=== PATIENT | male | born 1960 | race Caucasian/White ===

== ENCOUNTER 2021-11-08 23:43 | Inpatient (IN) | payer SELFPAY ==
[~2021-11-08] VITALS: Ht 182.9 cm; Wt 108.8 kg
--- NOTE | 2021-11-09 00:20 | PHYS DOC ---
Past Medical History Additional Past Medical Histor: HERNIA Past Surgical History: Other Adult General Chief Complaint Chief Complaint: ALTERED MENTAL STATUS HPI HPI Patient is a 61 year old male presenting to the emergency department for evaluation of a seizure episode that occurred at a gas station shortly prior to arrival. Per EMS the seizure was not witnessed rather he was filling up with gas at a gas station and someone found him laying on the ground at the gas pump. Patient had lost continence and bit his tongue to EMS as a suspect that he had a seizure. Patient says that he has had 1 prior seizure in his life and he is not on medications for seizures. He says he has no medical problems and takes no medications on a regular basis. He is somewhat confused but appears to be improving and able to answer questions. He has multiple abrasions on his hands and he says that his tetanus is up-to-date. Patient is in no acute distress with normal vital signs. Patient does admit that he drinks alcohol approximately 1 pint of whiskey daily and his last drink was possibly yesterday but he is unsure on this. At home he smokes cigarettes but does not use any drugs. Review of Systems Review of Systems Constitutional: Denies fever or chills [] Eyes: Denies change in visual acuity, redness, or eye pain [] HENT: Denies nasal congestion or sore throat [] Respiratory: Denies cough or shortness of breath [] Cardiovascular: No additional information not addressed in HPI [] GI: Denies abdominal pain, nausea, vomiting, bloody stools or diarrhea [] : Denies dysuria or hematuria [] Musculoskeletal: Denies back pain or joint pain [] Integument: Positive abrasion Neurologic: Denies headache, focal weakness or sensory changes [] All other systems were reviewed and found to be within normal limits, except as documented in this note. Current Medications Current Medications Current Medications Medications (Trade) Dose Ordered Sig/Cuauhtemoc Start Time Stop Time Status Last Admin Dose Admin Ibuprofen (Motrin) 800 mg 1X ONCE 11/09/21 01:00 11/09/21 01:01 DC Sodium Chloride 1,000 ml @ 1,000 mls/hr 1X ONCE 11/09/21 00:30 11/09/21 01:29 DC 11/09/21 00:43 1,000 MLS/HR Allergies Allergies Allergies Coded Allergies Type Severity Reaction Last Updated Verified No Known Drug Allergies 11/08/21 No Physical Exam Physical Exam Constitutional: Well developed, well nourished, no acute distress, non-toxic appearance. [] HENT: Normocephalic, atraumatic, bilateral external ears normal, oropharynx moist, no oral exudates, nose normal. [] Eyes: PERRLA, EOMI, conjunctiva normal, no discharge. [] Neck: Normal range of motion, no tenderness, supple, no stridor. [] Cardiovascular:Heart rate regular rhythm, no murmur [] Lungs & Thorax: Bilateral breath sounds clear to auscultation [] Abdomen: Bowel sounds normal, soft, no tenderness, no masses, no pulsatile masses. [] Skin: Multiple abrasions on bilateral hands Back: No midline cervical thoracic or lumbar tenderness to palpation Extremities: No tenderness, no cyanosis, no clubbing, ROM intact, no edema. [] Neurologic: Alert and oriented X 3, normal motor function, normal sensory function, no focal deficits noted. [] Current Patient Data Vital Signs Vital Signs Date Time Temp Pulse Resp B/P (MAP) Pulse Ox O2 Delivery O2 Flow Rate FiO2 11/08/21 23:45 97.8 77 16 143/67 (92) 98 Room Air 97.8 Lab Values Laboratory Tests Test 11/09/21 00:41 White Blood Count 5.0 x10^3/uL (4.0-11.0) Red Blood Count 4.02 x10^6/uL (4.30-5.70) L Hemoglobin 13.7 g/dL (13.0-17.5) Hematocrit 38.3 % (39.0-53.0) L Mean Corpuscular Volume 95 fL (79-100) Mean Corpuscular Hemoglobin 34 pg (25-35) Mean Corpuscular Hemoglobin Concent 36 g/dL (31-37) Red Cell Distribution Width 14.5 % (11.5-14.5) Platelet Count 97 x10^3/uL (140-400) L Neutrophils (%) (Auto) 73 % (31-73) Lymphocytes (%) (Auto) 17 % (24-48) L Monocytes (%) (Auto) 9 % (0-9) Eosinophils (%) (Auto) 1 % (0-3) Basophils (%) (Auto) 1 % (0-3) Neutrophils # (Auto) 3.7 x10^3/uL (1.8-7.7) Lymphocytes # (Auto) 0.8 x10^3/uL (1.0-4.8) L Monocytes # (Auto) 0.5 x10^3/uL (0.0-1.1) Eosinophils # (Auto) 0.0 x10^3/uL (0.0-0.7) Basophils # (Auto) 0.0 x10^3/uL (0.0-0.2) Sodium Level 126 mmol/L (136-145) L Potassium Level 2.2 mmol/L (3.5-5.1) *L Chloride Level 84 mmol/L (98-107) L Carbon Dioxide Level 33 mmol/L (21-32) H Anion Gap 9 (6-14) Blood Urea Nitrogen 32 mg/dL (8-26) H Creatinine 1.4 mg/dL (0.7-1.3) H Estimated GFR (Cockcroft-Gault) 51.9 BUN/Creatinine Ratio 23 (6-20) H Glucose Level 151 mg/dL (70-99) H Lactic Acid Level 3.4 mmol/L (0.4-2.0) H Calcium Level 8.6 mg/dL (8.5-10.1) Total Bilirubin 2.3 mg/dL (0.2-1.0) H Aspartate Amino Transferase (AST) 102 U/L (15-37) H Alanine Aminotransferase (ALT) 67 U/L (16-63) H Alkaline Phosphatase 66 U/L (46-116) Creatine Kinase 627 U/L (39-308) H Troponin I High Sensitivity 61 ng/L (4-75) Total Protein 7.1 g/dL (6.4-8.2) Albumin 3.5 g/dL (3.4-5.0) Albumin/Globulin Ratio 1.0 (1.0-1.7) Lipase 201 U/L (73-393) Thyroid Stimulating Hormone (TSH) 14.787 uIU/mL (0.358-3.74) H Ethyl Alcohol Level < 10 mg/dL (0-10) Laboratory Tests 11/09/21 00:41 Laboratory Tests 11/09/21 00:41 EKG EKG Sinus rhythm at 76 bpm with normal axis and no ST elevation but there is ST depression in the lateral leads with inverted T waves in leads aVL and V2 thro ugh V6 Radiology/Procedures Radiology/Procedures [] Course & Med Decision Making Course & Med Decision Making Patient may have had the second seizure in his life and he is not on any medications. I will check labs and imaging and observe closely. Patient continues to be somewhat confused and is very slow to answer questions I told him given these are basically new onset seizures given his prior seizure was in the 90s that we could work him up from a neurologic perspective for his new onset seizures. He may not get extensive work-up given it is the weekend but patient agreed that he still did not feel like he was at his baseline. I will defer seizure medications at this time and observe in the hospital to see if he has any further seizures. The seizures are not consistent with withdrawal in my opinion given he is not tachycardic or hypertensive or have tremors. Of note patient is severely hypokalemic and his correction has been started from the emergency department with potassium and magnesium. Dragon Disclaimer Dragon Disclaimer This electronic medical record was generated, in whole or in part, using a voice recognition dictation system. Departure Departure Impression: Primary Impression: New onset seizure Additional Impressions: Acute encephalopathy Hypokalemia Rhabdomyolysis Lactic acid acidosis Transaminitis Disposition: ADMITTED INPATIENT Admitting Physician: MELVIN Blackwood) Condition: GUARDED Problem Qualifiers PATT BELTRAN DO Nov 09, 2021 00:20
[2021-11-09] MEDS ORDERED: IV NORMAL SALINE 1000ML BAG 1,000 ML IV ONE (00:30)
[2021-11-09 00:54] LABS: BASO % 1 % (0-3); EOS % 1 % (0-3); HEMATOCRIT 38.3 % (39.0-53.0); HEMOGLOBIN 13.7 g/dL (13.0-17.5); LYMPH # 0.8 x10^3/uL (1.0-4.8); LYMPH % 17 % (24-48); MEAN CORPUSCULAR HEMOGLOBIN 34 pg (25-35); MEAN CORPUSCULAR HGB CONC 36 g/dL (31-37); MEAN CORPUSCULAR VOLUME 95 fL (79-100); MONO # 0.5 x10^3/uL (0.0-1.1); MONO % 9 % (0-9); NEUT # 3.7 x10^3/uL (1.8-7.7); NEUT % 73 % (31-73); PLATELET COUNT 97 x10^3/uL (140-400); RED BLOOD COUNT 4.02 x10^6/uL (4.30-5.70); RED CELL DISTRIBUTION WIDTH 14.5 % (11.5-14.5)
[2021-11-09] MEDS ORDERED: IBUPROFEN 400 MG TABLET. PO ONE (01:00)
[2021-11-09 01:12] LABS: ALBUMIN 3.5 g/dL (3.4-5.0); CALCIUM 8.6 mg/dL (8.5-10.1); CREATININE 1.4 mg/dL (0.7-1.3); GFR 51.9; TOTAL BILIRUBIN 2.3 mg/dL (0.2-1.0); TOTAL PROTEIN 7.1 g/dL (6.4-8.2)
[2021-11-09 01:14] LABS: POTASSIUM 2.2 mmol/L (3.5-5.1)
--- NOTE | 2021-11-09 01:29 | RAD ---
STUDY: CT head and cervical spine without contrast INDICATION: Seizure. Altered mental status. COMPARISON: None. TECHNIQUE: Axial CT imaging through the head and cervical spine without the use of intravenous contra st. Sagittal and coronal reformats were obtained. One or more of the following individualized dose reduction techniques were utilized for this examinat ion: 1. Automated exposure control 2. Adjustment of the mA and/or kV according to patient size 3. Use of iterative reconstruction technique. FINDINGS: CT head: Craniectomy defect on the left. Thin increased attenuation within the extra-axial space at the adjace nt to the craniectomy defect but not density of acute hemorrhage. No acute hemorrhage is identified t hroughout the rest of the head. Asymmetric parenchymal volume loss on the left cerebral hemisphere an d patchy hypoattenuation within the subcortical white matter. Primarily left temporal lobe encephalom alacia. No large area of jensen-white matter differentiation loss is suspicious for an acute cortical i nfarct. No regional mass effect. No hydrocephalus. No acute calvarial abnormality. CT cervical spine: Degraded study on account of patient body habitus with beam attenuation. No acute fractures identified. No traumatic malalignment. Multilevel degenerative changes most advanced at C5-C6 and C6-C7. The most notable osseous neural for aminal stenosis is on the right at C5-C6. Multilevel central canal stenosis greatest at C5-C6 and C6- C7 which is at least moderate to potentially severe at these levels. Scattered calcific atherosclerosis. Emphysematous changes at the lung apices. IMPRESSION: CT head: 1. No acute intracranial hemorrhage or CT evidence for an acute cortical infarction. 2. Craniectomy defect on the left. Parenchymal and extra-axial findings in the region of the craniec sherry favored subacute to chronic in age. No comparison studies are available. No hydrocephalus or reg ional mass effect. CT cervical spine: 1. No acute fracture or traumatic malalignment. 2. Advanced degenerative changes at C5-C6 and C6-C7 with at least moderate to potentially severe claudia tral canal stenosis at these levels. The most notable osseous neural foraminal stenosis is on the rig ht at C5-C6. Electronically signed by: NOE JORDAN MD (11/09/2021 1:26 AM) [facility]
[2021-11-09] MEDS ORDERED: MORPHINE SULFATE 2 MG/ML INJ. IVP PRN (01:45)
[2021-11-09] MEDS ORDERED: ONDANSETRON PF 4 MG/2 ML VIAL. IVP PRN ×2 (01:45→11:45)
[2021-11-09] MEDS ORDERED: MAGNESIUM SULFATE 4GM 100 ML IV ONE (02:00)
[2021-11-09] MEDS ORDERED: POTASSIUM CHLORIDE 20 MEQ TABLET.ER. PO ONE (02:00)
[2021-11-09] MEDS ORDERED: POTASSIUM CL 40MEQ IN 0.9%NACL 1,000 ML IV SCH (02:00)
--- NOTE | 2021-11-09 03:33 | EKG ---
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
--- NOTE | 2021-11-09 03:45 | NUR ---
The patient, PRITI DELGADO, 61 y/o, M admitted by NENA DICKERSON III, DO, was given written information regarding hospital policies, unit procedures and contact persons. PT'S SPEECH IS TINY BIT DELAYED TO ANSWER QUESTIONS OR ANSWERS, THEN CHANGES THE ANSWER. HE HAS SKIN SCRAPES ON ELBOWS,HANDS,FINGERS LOWER LEGS HAS SCRAPES AND BRUISES. HAD PT SOAK HIS HAND TO CLEAN THE AREAS Valuables were checked and DOCUMENTED IN THE EMR, HE HAS SEVERAL BRACLETS AND SEVERAL RINGS, ONE HEARING AIDE RIGHT AND THEN HIS CLOTHES. HAVE NOT ASSESSED HIS AMBULATION. HIS URINE IS TEA COLOR. HE IS FORGETFUL.LCRN
[2021-11-09] MEDS ORDERED: HTN MED (03:54)
[2021-11-09] MEDS ORDERED: [UNRECOGNIZED DRUG - OTHER] (03:55)
[2021-11-09 04:00] VITALS: BP 112/59
[2021-11-09 07:00] VITALS: BP 114/56
[2021-11-09 10:30] VITALS: BP 117/55
[2021-11-09 11:22] LABS: CALCIUM 7.9 mg/dL (8.5-10.1); GFR 76.5
[2021-11-09 11:27] LABS: POTASSIUM 2.4 mmol/L (3.5-5.1)
[2021-11-09] MEDS ORDERED: CALCIUM CARBONATE 500 MG TAB.CHEW PO PRN (11:45)
[2021-11-09] MEDS ORDERED: ELECTROLYTE (NON-ICU) PROTOCOL. MC PRN (11:45)
--- NOTE | 2021-11-09 12:09 | PDOC1 ---
History and Physical Date of Service: DOS: DATE: 11/09/21 TIME: 12:01 Chief Complaint: Chief Complain: Seizure-like activity History of Present Illness: HPI: Patient is a 61-year-old male presented to the emergency room overnight after reports of a seizure while he was pumping gas. Per EMS seizure was not witnessed by anybody but he was postictal on the ground. Had bitten his tongue and lost continence. Bystanders contacted emergency department. I saw the patient he was awake alert oriented x3. Not the best historian. Says the last thing he remembers about this event was getting out of his car to pump gas. Said he had 1 prior seizure in the , was not really able to explain in much detail to me potential cause. Denies any daily medications but also admits to not following up with doctors. Drinks 1 pint of whiskey daily and has for many years. Last drink was Wednesday night Patient also noted to be very hypokalemic on arrival. Past Medical/Surgical History: PMH/PSH: Seizure but really could not expand any detail Allergies: Allergies: Coded Allergies: No Known Drug Allergies (Unverified , 11/08/21) Family History: Family History: Denies knowing any Social History: Social History: 1 pint of whiskey daily. Daily tobacco smoker. Denies drug use Current Medications: Current Medications Current Medications Sodium Chloride 1,000 ml @ 1,000 mls/hr 1X ONCE IV Last administered on 11/09/21at 00:43; Start 11/09/21 at 00:30; Stop 11/09/21 at 01:29; Status DC Ibuprofen (Motrin) 800 mg 1X ONCE PO ; Start 11/09/21 at 01:00; Stop 11/09/21 at 01:01; Status DC Potassium Chloride/Sodium Chloride 1,000 ml @ 250 mls/hr Q4H IV Last administered on 11/09/21at 02:03; Start 11/09/21 at 02:00; Stop 11/09/21 at 05: 59; Status DC Potassium Chloride (Klor-Con) 40 meq 1X ONCE PO ; Start 11/09/21 at 02:00; Stop 11/09/21 at 02:01; Status DC Magnesium Sulfate 100 ml @ 25 mls/hr 1X ONCE IV Last administered on 11/09/21at 02:30; Start 11/09/21 at 02:00; Stop 11/09/21 at 05:59; Status DC Ondansetron HCl (Zofran) 4 mg PRN Q8HRS PRN IVP NAUSEA/VOMITING 1ST CHOICE; Start 11/09/21 at 01:45; Stop 11/10/21 at 01:44 Morphine Sulfate (Morphine Sulfate) 2 mg PRN Q2HR PRN IVP SEVERE PAIN 7-10; Start 11/09/21 at 01:45; Stop 11/10/21 at 01:44 Multivitamins 10 ml/Thiamine HCl 100 mg/Folic Acid 1 mg/Sodium Chloride 1,011.2 ml @ 100 mls/ hr DAILY IV ; Start 11/09/21 at 14:00; Stop 11/13/21 at 19:07 Multivitamins (Thera M Plus) 1 tab DAILY PO ; Start 11/14/21 at 09:00; Status UNV Folic Acid (Folic Acid) 1 mg DAILY PO ; Start 11/14/21 at 09:00; Status UNV Thiamine Mononitrate (Vitamin B-1) 100 mg DAILY PO ; Start 11/14/21 at 09:00; Status UNV Lorazepam (Ativan) 4 mg PRN Q1HR PRN PO For CIWA 8-14; Start 11/09/21 at 11:45; Status UNV Lorazepam (Ativan) 8 mg PRN Q1HR PRN PO For CIWA 15 or greater; Start 11/09/21 at 11:45; Status UNV Potassium Chloride (Klor-Con) 40 meq Q4H PO ; Start 11/09/21 at 11:45; Stop 11/09/21 at 15:46; Status UNV Potassium Chloride/Water 100 ml @ 100 mls/hr Q1H IV ; Start 11/09/21 at 11:45; Stop 11/09/21 at 15:44; Status UNV Ondansetron HCl (Zofran) 4 mg PRN Q6HRS PRN IVP NAUSEA/VOMITING; Start 11/09/21 at 11:45; Status UNV Calcium Carbonate/ Glycine (Tums) 500 mg PRN Q3HRS PRN PO UPSET STOMACH; Start 11/09/21 at 11:45; Status UNV Info (Non-Icu Electrolyte Protocol) 1 ea PRN DAILY PRN MC SEE COMMENTS; Start 11/09/21 at 11:45; Status UNV Senna/Docusate Sodium (Senna Plus) 1 tab BID PO ; Start 11/09/21 at 21:00; Status UNV Heparin Sodium (Porcine) (Heparin Sodium) 5,000 unit Q8HRS SQ ; Start 11/09/21 at 14:00; Status UNV Active Scripts Active Reported [Hypertension Med.] ROS: Review of Systems Review of System Unless noted in HPI 14 point review of systems is negative Physical Exam: Vital Signs: Vital Signs Date Time Temp Pulse Resp B/P (MAP) Pulse Ox O2 Delivery O2 Flow Rate FiO2 11/09/21 10:30 98.1 66 18 117/55 (75) 99 Room Air 98.1 11/09/21 07:00 2.0 Physcial Exam: GEN: No apparent distress. Alert and oriented HEENT: Normal cephalic, atraumatic, external auditory canals are patent EYES: Extraocular muscles are intact, pupil are equally round and reactive to light and accommodation MUSCULOSKELETAL: Well developed , well nourished, good range of motion ENDOCRINE: No thyromegaly was palpated LYMPHATICS: No cervical chain or axillary nodes were noted HEMATOPOIETIC: No bruising NECK: Supple, no JVD, no thyromegaly was noted LUNGS: Clear to auscultation in all lung shepard without rhonchi or wheezing HEART: RRR, S1, S2 present. Peripheral pulses intact, no obvious murmurs noted ABDOMEN: Soft, nontender. Positive bowel sounds, no organomegaly, normal bowel sounds EXTREMITIES: Without clubbing, cyanosis, or edema. Pedal pulses intact. Negative Homans sign NEUROLOGIC: Normal speech and tone. A&O x 3, moves all extremities, no obvious focal deficits PSYCHIATRIC: Normal affect, normal mood. Stable SKIN: No ulcerations or rashes, good skin turgor, no jaundice VASCULAR: Good capillary refill, neurovascular bundle appears to be intact Labs: Labs: Laboratory Tests Test 11/09/21 00:41 11/09/21 04:00 11/09/21 11:02 White Blood Count 5.0 x10^3/uL (4.0-11.0) Red Blood Count 4.02 x10^6/uL (4.30-5.70) Hemoglobin 13.7 g/dL (13.0-17.5) Hematocrit 38.3 % (39.0-53.0) Mean Corpuscular Volume 95 fL (79-100) Mean Corpuscular Hemoglobin 34 pg (25-35) Mean Corpuscular Hemoglobin Concent 36 g/dL (31-37) Red Cell Distribution Width 14.5 % (11.5-14.5) Platelet Count 97 x10^3/uL (140-400) Neutrophils (%) (Auto) 73 % (31-73) Lymphocytes (%) (Auto) 17 % (24-48) Monocytes (%) (Auto) 9 % (0-9) Eosinophils (%) (Auto) 1 % (0-3) Basophils (%) (Auto) 1 % (0-3) Neutrophils # (Auto) 3.7 x10^3/uL (1.8-7.7) Lymphocytes # (Auto) 0.8 x10^3/uL (1.0-4.8) Monocytes # (Auto) 0.5 x10^3/uL (0.0-1.1) Eosinophils # (Auto) 0.0 x10^3/uL (0.0-0.7) Basophils # (Auto) 0.0 x10^3/uL (0.0-0.2) Sodium Level 126 mmol/L (136-145) 126 mmol/L (136-145) Potassium Level 2.2 mmol/L (3.5-5.1) 2.4 mmol/L (3.5-5.1) Chloride Level 84 mmol/L (98-107) 89 mmol/L (98-107) Carbon Dioxide Level 33 mmol/L (21-32) 31 mmol/L (21-32) Anion Gap 9 (6-14) 6 (6-14) Blood Urea Nitrogen 32 mg/dL (8-26) 23 mg/dL (8-26) Creatinine 1.4 mg/dL (0.7-1.3) 1.0 mg/dL (0.7-1.3) Estimated GFR (Cockcroft-Gault) 51.9 76.5 BUN/Creatinine Ratio 23 (6-20) Glucose Level 151 mg/dL (70-99) 94 mg/dL (70-99) Lactic Acid Level 3.4 mmol/L (0.4-2.0) 1.2 mmol/L (0.4-2.0) Calcium Level 8.6 mg/dL (8.5-10.1) 7.9 mg/dL (8.5-10.1) Total Bilirubin 2.3 mg/dL (0.2-1.0) Aspartate Amino Transf (AST/SGOT) 102 U/L (15-37) Alanine Aminotransferase (ALT/SGPT) 67 U/L (16-63) Alkaline Phosphatase 66 U/L (46-116) Creatine Kinase 627 U/L (39-308) Troponin I High Sensitivity 61 ng/L (4-75) Total Protein 7.1 g/dL (6.4-8.2) Albumin 3.5 g/dL (3.4-5.0) Albumin/Globulin Ratio 1.0 (1.0-1.7) Lipase 201 U/L (73-393) Thyroid Stimulating Hormone (TSH) 14.787 uIU/mL (0.358-3.74) Ethyl Alcohol Level < 10 mg/dL (0-10) Laboratory Tests Test 11/09/21 00:41 11/09/21 04:00 11/09/21 11:02 White Blood Count 5.0 x10^3/uL (4.0-11.0) Red Blood Count 4.02 x10^6/uL (4.30-5.70) Hemoglobin 13.7 g/dL (13.0-17.5) Hematocrit 38.3 % (39.0-53.0) Mean Corpuscular Volume 95 fL (79-100) Mean Corpuscular Hemoglobin 34 pg (25-35) Mean Corpuscular Hemoglobin Concent 36 g/dL (31-37) Red Cell Distribution Width 14.5 % (11.5-14.5) Platelet Count 97 x10^3/uL (140-400) Neutrophils (%) (Auto) 73 % (31-73) Lymphocytes (%) (Auto) 17 % (24-48) Monocytes (%) (Auto) 9 % (0-9) Eosinophils (%) (Auto) 1 % (0-3) Basophils (%) (Auto) 1 % (0-3) Neutrophils # (Auto) 3.7 x10^3/uL (1.8-7.7) Lymphocytes # (Auto) 0.8 x10^3/uL (1.0-4.8) Monocytes # (Auto) 0.5 x10^3/uL (0.0-1.1) Eosinophils # (Auto) 0.0 x10^3/uL (0.0-0.7) Basophils # (Auto) 0.0 x10^3/uL (0.0-0.2) Sodium Level 126 mmol/L (136-145) 126 mmol/L (136-145) Potassium Level 2.2 mmol/L (3.5-5.1) 2.4 mmol/L (3.5-5.1) Chloride Level 84 mmol/L (98-107) 89 mmol/L (98-107) Carbon Dioxide Level 33 mmol/L (21-32) 31 mmol/L (21-32) Anion Gap 9 (6-14) 6 (6-14) Blood Urea Nitrogen 32 mg/dL (8-26) 23 mg/dL (8-26) Creatinine 1.4 mg/dL (0.7-1.3) 1.0 mg/dL (0.7-1.3) Estimated GFR (Cockcroft-Gault) 51.9 76.5 BUN/Creatinine Ratio 23 (6-20) Glucose Level 151 mg/dL (70-99) 94 mg/dL (70-99) Lactic Acid Level 3.4 mmol/L (0.4-2.0) 1.2 mmol/L (0.4-2.0) Calcium Level 8.6 mg/dL (8.5-10.1) 7.9 mg/dL (8.5-10.1) Total Bilirubin 2.3 mg/dL (0.2-1.0) Aspartate Amino Transf (AST/SGOT) 102 U/L (15-37) Alanine Aminotransferase (ALT/SGPT) 67 U/L (16-63) Alkaline Phosphatase 66 U/L (46-116) Creatine Kinase 627 U/L (39-308) Troponin I High Sensitivity 61 ng/L (4-75) Total Protein 7.1 g/dL (6.4-8.2) Albumin 3.5 g/dL (3.4-5.0) Albumin/Globulin Ratio 1.0 (1.0-1.7) Lipase 201 U/L (73-393) Thyroid Stimulating Hormone (TSH) 14.787 uIU/mL (0.358-3.74) Ethyl Alcohol Level < 10 mg/dL (0-10) Assessment/Plan Assessment/Plan Seizure-like activity suspect secondary to alcohol withdrawal versus electrolyte abnormalities hypokalemia versus epilepsy? Alcohol abuse -Seizure-like activity last night at the gas station. Does not really remember much of the event. -1 pint whiskey daily. Alcohol withdrawal protocol suspect this is a strong contributor to his seizures -Severe electrolyte abnormalities on arrival. Continue replacement -Denies any home meds to resume. -Neurology consultation -We will hold off on Keppra load for now and see if patient has any further seizures while admitted -DVT prophylaxis -PT OT Discussed with bedside RN. Justifications for Admission Other Justification MOLLY ARREOLA MD Nov 09, 2021 12:09
[2021-11-09] MEDS: HEPARIN for SUB-Q USE 5,000 UNIT/ML VIAL. SQ SCH ×2 (12:23→22:00)
[2021-11-09] MEDS: POTASSIUM CHLORIDE 10MEQ 100 ML IV SCH ×4 (12:24→15:30)
[2021-11-09] MEDS: POTASSIUM CHLORIDE 20 MEQ TABLET.ER. PO SCH ×2 (12:24→12:25)
[2021-11-09] MEDS: MULTIVIT INFUSN,ADULT 4,VIT K 10 ML, THIAMINE INJ 100 MG, FOLIC ACID INJ 1 MG in IV NOR... IV SCH (12:25)
[2021-11-09 15:09] VITALS: BP 140/75
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
[2021-11-09 19:04] VITALS: BP 152/71
[2021-11-09] MEDS: SENNOSIDES/DOCUSATE 8.6/50MG TABLET. PO SCH (22:16)
[2021-11-09 22:49] VITALS: BP 107/55
[2021-11-10 02:37] VITALS: BP 132/55
[2021-11-10 04:37] LABS: BASO % 1 % (0-3); EOS # 0.1 x10^3/uL (0.0-0.7); EOS % 2 % (0-3); HEMATOCRIT 32.3 % (39.0-53.0); HEMOGLOBIN 11.5 g/dL (13.0-17.5); LYMPH # 1.3 x10^3/uL (1.0-4.8); LYMPH % 28 % (24-48); MEAN CORPUSCULAR HEMOGLOBIN 34 pg (25-35); MEAN CORPUSCULAR HGB CONC 36 g/dL (31-37); MEAN CORPUSCULAR VOLUME 96 fL (79-100); MONO # 0.5 x10^3/uL (0.0-1.1); MONO % 11 % (0-9); NEUT # 2.7 x10^3/uL (1.8-7.7); NEUT % 58 % (31-73); PLATELET COUNT 98 x10^3/uL (140-400); RED BLOOD COUNT 3.38 x10^6/uL (4.30-5.70); RED CELL DISTRIBUTION WIDTH 14.4 % (11.5-14.5); WHITE BLOOD COUNT 4.7 x10^3/uL (4.0-11.0)
[2021-11-10 05:10] LABS: ALBUMIN 2.9 g/dL (3.4-5.0); CALCIUM 7.8 mg/dL (8.5-10.1); CREATININE 0.9 mg/dL (0.7-1.3); GFR 86.4; TOTAL BILIRUBIN 1.6 mg/dL (0.2-1.0); TOTAL PROTEIN 5.9 g/dL (6.4-8.2)
[2021-11-10 05:13] LABS: POTASSIUM 2.6 mmol/L (3.5-5.1)
[2021-11-10] MEDS: HEPARIN for SUB-Q USE 5,000 UNIT/ML VIAL. SQ SCH ×3 (06:00→21:01)
[2021-11-10 07:00] VITALS: BP 149/73
[2021-11-10] MEDS: SENNOSIDES/DOCUSATE 8.6/50MG TABLET. PO SCH ×2 (07:22→21:00)
[2021-11-10] MEDS: POTASSIUM CHLORIDE 20 MEQ TABLET.ER. PO SCH ×2 (08:35→11:11)
[2021-11-10] MEDS: MULTIVIT INFUSN,ADULT 4,VIT K 10 ML, THIAMINE INJ 100 MG, FOLIC ACID INJ 1 MG in IV NOR... IV SCH (09:00)
--- NOTE | 2021-11-10 10:04 | PDOC ---
PROGRESS NOTES Date of Service DATE: 11/10/21 TIME: 10:01 Assessment Problems Medical Problems: (1) Acute encephalopathy Status: Acute (2) Hypokalemia Status: Acute (3) Lactic acid acidosis Status: Acute (4) New onset seizure Status: Acute (5) Rhabdomyolysis Status: Acute (6) Transaminitis Status: Acute Suspected seizure, history of remote seizure Alcohol use, alcohol level negative here, tobacco abuse, no evidence of acute withdrawal syndrome Plan MRI brain Electroencephalogram Alcohol withdrawal protocol Hold on starting anticonvulsant Subjective "I have to pee!" Objective Vital Signs Date Time Temp Pulse Resp B/P (MAP) Pulse Ox O2 Delivery O2 Flow Rate FiO2 11/10/21 08:00 Room Air 2.0 11/10/21 07:00 97.7 85 18 149/73 (98) 96 97.7 Intake and Output 11/10/21 07:00 Intake Total 580 ml Output Total 800 ml Balance -220 ml Intake Oral 580 ml Output Urine Total 800 ml PHYSICAL EXAM Alert. Oriented to time, place and person. PERRL. EOMI. CN: no focal findings. Muscle tone: normal. Muscle strength: 5/5 DTR: 1+ Plantar reflex: Flexor Gait: A little unsteady, antalgic Sensory exam: no abnormal findings. No cerebellar signs elicited. Review of Relevant I have reviewed the following items elaina (where applicable) has been applied. Labs Laboratory Tests Test 11/09/21 00:41 11/09/21 04:00 11/09/21 11:02 11/10/21 02:50 White Blood Count 5.0 x10^3/uL (4.0-11.0) 4.7 x10^3/uL (4.0-11.0) Red Blood Count 4.02 x10^6/uL (4.30-5.70) 3.38 x10^6/uL (4.30-5.70) Hemoglobin 13.7 g/dL (13.0-17.5) 11.5 g/dL (13.0-17.5) Hematocrit 38.3 % (39.0-53.0) 32.3 % (39.0-53.0) Mean Corpuscular Volume 95 fL (79-100) 96 fL (79-100) Mean Corpuscular Hemoglobin 34 pg (25-35) 34 pg (25-35) Mean Corpuscular Hemoglobin Concent 36 g/dL (31-37) 36 g/dL (31-37) Red Cell Distribution Width 14.5 % (11.5-14.5) 14.4 % (11.5-14.5) Platelet Count 97 x10^3/uL (140-400) 98 x10^3/uL (140-400) Neutrophils (%) (Auto) 73 % (31-73) 58 % (31-73) Lymphocytes (%) (Auto) 17 % (24-48) 28 % (24-48) Monocytes (%) (Auto) 9 % (0-9) 11 % (0-9) Eosinophils (%) (Auto) 1 % (0-3) 2 % (0-3) Basophils (%) (Auto) 1 % (0-3) 1 % (0-3) Neutrophils # (Auto) 3.7 x10^3/uL (1.8-7.7) 2.7 x10^3/uL (1.8-7.7) Lymphocytes # (Auto) 0.8 x10^3/uL (1.0-4.8) 1.3 x10^3/uL (1.0-4.8) Monocytes # (Auto) 0.5 x10^3/uL (0.0-1.1) 0.5 x10^3/uL (0.0-1.1) Eosinophils # (Auto) 0.0 x10^3/uL (0.0-0.7) 0.1 x10^3/uL (0.0-0.7) Basophils # (Auto) 0.0 x10^3/uL (0.0-0.2) 0.0 x10^3/uL (0.0-0.2) Sodium Level 126 mmol/L (136-145) 126 mmol/L (136-145) 130 mmol/L (136-145) Potassium Level 2.2 mmol/L (3.5-5.1) 2.4 mmol/L (3.5-5.1) 2.6 mmol/L (3.5-5.1) Chloride Level 84 mmol/L (98-107) 89 mmol/L (98-107) 92 mmol/L (98-107) Carbon Dioxide Level 33 mmol/L (21-32) 31 mmol/L (21-32) 30 mmol/L (21-32) Anion Gap 9 (6-14) 6 (6-14) 8 (6-14) Blood Urea Nitrogen 32 mg/dL (8-26) 23 mg/dL (8-26) 15 mg/dL (8-26) Creatinine 1.4 mg/dL (0.7-1.3) 1.0 mg/dL (0.7-1.3) 0.9 mg/dL (0.7-1.3) Estimated GFR (Cockcroft-Gault) 51.9 76.5 86.4 BUN/Creatinine Ratio 23 (6-20) 17 (6-20) Glucose Level 151 mg/dL (70-99) 94 mg/dL (70-99) 75 mg/dL (70-99) Lactic Acid Level 3.4 mmol/L (0.4-2.0) 1.2 mmol/L (0.4-2.0) Calcium Level 8.6 mg/dL (8.5-10.1) 7.9 mg/dL (8.5-10.1) 7.8 mg/dL (8.5-10.1) Total Bilirubin 2.3 mg/dL (0.2-1.0) 1.6 mg/dL (0.2-1.0) Aspartate Amino Transf (AST/SGOT) 102 U/L (15-37) 93 U/L (15-37) Alanine Aminotransferase (ALT/SGPT) 67 U/L (16-63) 55 U/L (16-63) Alkaline Phosphatase 66 U/L (46-116) 57 U/L (46-116) Creatine Kinase 627 U/L (39-308) Troponin I High Sensitivity 61 ng/L (4-75) Total Protein 7.1 g/dL (6.4-8.2) 5.9 g/dL (6.4-8.2) Albumin 3.5 g/dL (3.4-5.0) 2.9 g/dL (3.4-5.0) Albumin/Globulin Ratio 1.0 (1.0-1.7) 1.0 (1.0-1.7) Lipase 201 U/L (73-393) Thyroid Stimulating Hormone (TSH) 14.787 uIU/mL (0.358-3.74) Ethyl Alcohol Level < 10 mg/dL (0-10) Thyroxine (T4) 0.9 ug/dL (4.5-12.0) Laboratory Tests Test 11/09/21 11:02 11/10/21 02:50 Sodium Level 126 mmol/L (136-145) 130 mmol/L (136-145) Potassium Level 2.4 mmol/L (3.5-5.1) 2.6 mmol/L (3.5-5.1) Chloride Level 89 mmol/L (98-107) 92 mmol/L (98-107) Carbon Dioxide Level 31 mmol/L (21-32) 30 mmol/L (21-32) Anion Gap 6 (6-14) 8 (6-14) Blood Urea Nitrogen 23 mg/dL (8-26) 15 mg/dL (8-26) Creatinine 1.0 mg/dL (0.7-1.3) 0.9 mg/dL (0.7-1.3) Estimated GFR (Cockcroft-Gault) 76.5 86.4 Glucose Level 94 mg/dL (70-99) 75 mg/dL (70-99) Calcium Level 7.9 mg/dL (8.5-10.1) 7.8 mg/dL (8.5-10.1) Thyroxine (T4) 0.9 ug/dL (4.5-12.0) White Blood Count 4.7 x10^3/uL (4.0-11.0) Red Blood Count 3.38 x10^6/uL (4.30-5.70) Hemoglobin 11.5 g/dL (13.0-17.5) Hematocrit 32.3 % (39.0-53.0) Mean Corpuscular Volume 96 fL (79-100) Mean Corpuscular Hemoglobin 34 pg (25-35) Mean Corpuscular Hemoglobin Concent 36 g/dL (31-37) Red Cell Distribution Width 14.4 % (11.5-14.5) Platelet Count 98 x10^3/uL (140-400) Neutrophils (%) (Auto) 58 % (31-73) Lymphocytes (%) (Auto) 28 % (24-48) Monocytes (%) (Auto) 11 % (0-9) Eosinophils (%) (Auto) 2 % (0-3) Basophils (%) (Auto) 1 % (0-3) Neutrophils # (Auto) 2.7 x10^3/uL (1.8-7.7) Lymphocytes # (Auto) 1.3 x10^3/uL (1.0-4.8) Monocytes # (Auto) 0.5 x10^3/uL (0.0-1.1) Eosinophils # (Auto) 0.1 x10^3/uL (0.0-0.7) Basophils # (Auto) 0.0 x10^3/uL (0.0-0.2) BUN/Creatinine Ratio 17 (6-20) Total Bilirubin 1.6 mg/dL (0.2-1.0) Aspartate Amino Transf (AST/SGOT) 93 U/L (15-37) Alanine Aminotransferase (ALT/SGPT) 55 U/L (16-63) Alkaline Phosphatase 57 U/L (46-116) Total Protein 5.9 g/dL (6.4-8.2) Albumin 2.9 g/dL (3.4-5.0) Albumin/Globulin Ratio 1.0 (1.0-1.7) Medications Current Medications Sodium Chloride 1,000 ml @ 1,000 mls/hr 1X ONCE IV Last administered on 11/09/21at 00:43; Start 11/09/21 at 00:30; Stop 11/09/21 at 01:29; Status DC Ibuprofen (Motrin) 800 mg 1X ONCE PO ; Start 11/09/21 at 01:00; Stop 11/09/21 at 01:01; Status DC Potassium Chloride/Sodium Chloride 1,000 ml @ 250 mls/hr Q4H IV Last administered on 11/09/21at 02:03; Start 11/09/21 at 02:00; Stop 11/09/21 at 05:59; Status DC Potassium Chloride (Klor-Con) 40 meq 1X ONCE PO ; Start 11/09/21 at 02:00; Stop 11/09/21 at 02:01; Status DC Magnesium Sulfate 100 ml @ 25 mls/hr 1X ONCE IV Last administered on 11/09/21at 02:30; Start 11/09/21 at 02:00; Stop 11/09/21 at 05:59; Status DC Ondansetron HCl (Zofran) 4 mg PRN Q8HRS PRN IVP NAUSEA/VOMITING 1ST CHOICE; Start 11/09/21 at 01:45; Stop 11/10/21 at 01:44; Status DC Morphine Sulfate (Morphine Sulfate) 2 mg PRN Q2HR PRN IVP SEVERE PAIN 7-10; Start 11/09/21 at 01:45; Stop 11/10/21 at 01:44; Status DC Multivitamins 10 ml/Thiamine HCl 100 mg/Folic Acid 1 mg/Sodium Chloride 1,011.2 ml @ 100 mls/ hr DAILY IV Last administered on 11/10/21at 09:00; Start 11/09/21 at 14:00; Stop 11/13/21 at 19:07 Multivitamins (Thera M Plus) 1 tab DAILY PO ; Start 11/14/21 at 09:00 Folic Acid (Folic Acid) 1 mg DAILY PO ; Start 11/14/21 at 09:00 Thiamine Mononitrate (Vitamin B-1) 100 mg DAILY PO ; Start 11/14/21 at 09:00 Lorazepam (Ativan) 4 mg PRN Q1HR PRN PO For CIWA 8-14; Start 11/09/21 at 11:45 Lorazepam (Ativan) 8 mg PRN Q1HR PRN PO For CIWA 15 or greater; Start 11/09/21 at 11:45 Potassium Chloride (Klor-Con) 40 meq Q4H PO Last administered on 11/09/21at 12:25; Start 11/09/21 at 11:45; Stop 11/09/21 at 15:46; Status DC Potassium Chloride/Water 100 ml @ 100 mls/hr Q1H IV Last administered on 11/09/21at 15:30; Start 11/09/21 at 12:30; Stop 11/09/21 at 16:29; Status DC Ondansetron HCl (Zofran) 4 mg PRN Q6HRS PRN IVP NAUSEA/VOMITING; Start 11/09/21 at 11:45 Calcium Carbonate/ Glycine (Tums) 500 mg PRN Q3HRS PRN PO UPSET STOMACH; Start 11/09/21 at 11:45 Info (Non-Icu Electrolyte Protocol) 1 ea PRN DAILY PRN MC SEE COMMENTS; Start 11/09/21 at 11:45 Senna/Docusate Sodium (Senna Plus) 1 tab BID PO Last administered on 11/09/21at 22:16; Start 11/09/21 at 21:00 Heparin Sodium (Porcine) (Heparin Sodium) 5,000 unit Q8HRS SQ Last administered on 11/09/21at 22:00; Start 11/09/21 at 14:00 Potassium Chloride (Klor-Con) 40 meq Q4H PO Last administered on 11/10/21at 08:35; Start 11/10/21 at 08:00; Stop 11/10/21 at 12:01 Active Scripts Active Reported [Hypertension Med.] Vitals/I & O Vital Sign - Last 24 Hours 11/09/21 11/09/21 11/09/21 11/09/21 10:30 15:09 19:04 20:00 Temp 98.1 98.3 97.5 98.1 98.3 97.5 Pulse 66 84 73 Resp 18 20 18 B/P (MAP) 117/55 (75) 140/75 (96) 152/71 (98) Pulse Ox 99 95 92 O2 Delivery Room Air Room Air Room Air O2 Flow Rate 2.0 11/09/21 11/10/21 11/10/21 11/10/21 22:49 02:37 07:00 08:00 Temp 97.6 97.7 97.7 97.6 97.7 97.7 Pulse 89 63 85 Resp 16 18 18 B/P (MAP) 107/55 (72) 132/55 (80) 149/73 (98) Pulse Ox 94 97 96 O2 Delivery Room Air Room Air Room Air Room Air O2 Flow Rate 2.0 Intake and Output 11/09/21 11/09/21 11/10/21 15:00 23:00 07:00 Intake Total 580 ml 0 ml Output Total 700 ml 100 ml Balance -120 ml -100 ml [address] head and cervical spine without contrast November 08, 2021. FINDINGS: CT head: Craniectomy defect on the left. Thin increased attenuation within the extra- axial space at the adjacent to the craniectomy defect but not density of acute hemorrhage. No acute hemorrhage is identified throughout the rest of the head. Asymmetric parenchymal volume loss on the left cerebral hemisphere and patchy hypoattenuation within the subcortical white matter. Primarily left temporal lobe encephalomalacia. No large area of jensen-white matter differentiation loss is suspicious for an acute cortical infarct. No regional mass effect. No hydrocephalus. No acute calvarial abnormality. CT cervical spine: Degraded study on account of patient body habitus with beam attenuation. No acute fractures identified. No traumatic malalignment. Multilevel degenerative changes most advanced at C5-C6 and C6-C7. The most notable osseous neural foraminal stenosis is on the right at C5-C6. Multilevel central canal stenosis greatest at C5-C6 and C6-C7 which is at least moderate to potentially severe at these levels. Scattered calcific atherosclerosis. Emphysematous changes at the lung apices. IMPRESSION: CT head: 1. No acute intracranial hemorrhage or CT evidence for an acute cortical infarction. 2. Craniectomy defect on the left. Parenchymal and extra-axial findings in the region of the craniectomy favored subacute to chronic in age. No comparison studies are available. No hydrocephalus or regional mass effect. CT cervical spine: 1. No acute fracture or traumatic malalignment. 2. Advanced degenerative changes at C5-C6 and C6-C7 with at least moderate to potentially severe central canal stenosis at these levels. The most notable osseous neural foraminal stenosis is on the right at C5-C6. Justicifation of Admission Dx: Justifications for Admission: Justification of Admission Dx: N/A PHILL VEGA MD Nov 10, 2021 10:04
[2021-11-10 10:50] VITALS: BP 132/59
[2021-11-10] MEDS ORDERED: GADOTERATE 7.5 MMOL/15ML VIAL. IVP ONE (11:15)
--- NOTE | 2021-11-10 13:08 | RAD ---
EXAM: Brain MRI with and without contrast. HISTORY: Seizure disorder. Remote head trauma. TECHNIQUE: Multiplanar, multisequence magnetic resonance imaging of the brain was performed prior to and following the administration of intravenous contrast. COMPARISON: CT dated 11/08/2021. FINDINGS: There is no restricted diffusion to suggest acute or subacute infarction. There is no mass effect or midline shift. There is no hydrocephalus. There are left parietal craniotomy changes. There is and encephalomalacia and gliosis within the left temporal lobe and inferior medial right greater than left frontal lobes, the distribution of which favors changes due to remote trauma. There are a few nonspecific focal areas of signal change within the cerebral white matter, likely due to chronic small vessel disease. There may be a chronic infarct within the left centrum semiovale. T he orbits are unremarkable. There is paranasal sinus mucosal thickening with small right greater than left maxillary sinus mucous retention cyst. There is minimal mastoid fluid. There are normal flow vo ids within the cerebral vessels. There is no heterotopia or malformation of cortical development. There is no convincing mesial tempor al sclerosis. There is no suspicious enhancing lesion. IMPRESSION: 1. No acute intracranial finding. 2. Encephalomalacia with surrounding gliosis involving the left temporal lobe and inferior medial rig ht greater than left frontal lobes, the distribution of which favors changes due to remote trauma. 3. Scattered foci of signal change within the cerebral white matter, likely due to chronic small vess el disease. There may be superimposed small chronic infarct involving the left centrum semiovale. Electronically signed by: Chante Simons MD (11/10/2021 1:05 PM) [id number]
--- NOTE | 2021-11-10 13:10 | NUR ---
SS following for discharge planning. SS reviewed pt chart and discussed with pt RN. Pt lives at the [facility] and is currently on room air. Neurology following. Brain MRI and EEG ordered. PT/OT ordered. Self pay. Med Assist following. SS will continue to follow for discharge planning.
--- NOTE | 2021-11-10 13:24 | PDOC ---
[employer] PROGRESS NOTE Date of Service DOS: DATE: 11/10/21 TIME: 13:15 Chief Complaint Chief Complaint Seizure-like activity suspect secondary to alcohol withdrawal versus electrolyte abnormalities hypokalemia epilepsy? Alcohol abuse Hypothyroidism History of Present Illness History of Present Illness 11/10: Afebrile. No seizure-like activity today. MRI showed no acute intracranial finding, but did show findings favoring of remote encephalomalacia. We will continue as needed Ativan and withdrawal treatment. Potassium 2.6 today; will replace. TSH 14.7; will initiate levothyroxine. He does admit to a history of hyperthyroidism in the past, treated with radioactive ablation. Vitals/I&O Vitals/I&O: Vital Signs Date Time Temp Pulse Resp B/P (MAP) Pulse Ox O2 Delivery O2 Flow Rate FiO2 11/10/21 10:50 98.0 74 18 132/59 (83) 98 Room Air 98.0 11/10/21 08:00 2.0 I & O 11/09/21 11/09/21 11/10/21 15:00 23:00 07:00 Intake Total 580 ml 0 ml Output Total 700 ml 100 ml Balance -120 ml -100 ml 0 ml Physical Exam General: Alert Heart: Regular rate Lungs: Clear Abdomen: Soft, No tenderness Extremities: No clubbing Skin: No rashes Labs Labs: Laboratory Tests Test 11/10/21 02:50 White Blood Count 4.7 x10^3/uL (4.0-11.0) Red Blood Count 3.38 x10^6/uL (4.30-5.70) Hemoglobin 11.5 g/dL (13.0-17.5) Hematocrit 32.3 % (39.0-53.0) Mean Corpuscular Volume 96 fL (79-100) Mean Corpuscular Hemoglobin 34 pg (25-35) Mean Corpuscular Hemoglobin Concent 36 g/dL (31-37) Red Cell Distribution Width 14.4 % (11.5-14.5) Platelet Count 98 x10^3/uL (140-400) Neutrophils (%) (Auto) 58 % (31-73) Lymphocytes (%) (Auto) 28 % (24-48) Monocytes (%) (Auto) 11 % (0-9) Eosinophils (%) (Auto) 2 % (0-3) Basophils (%) (Auto) 1 % (0-3) Neutrophils # (Auto) 2.7 x10^3/uL (1.8-7.7) Lymphocytes # (Auto) 1.3 x10^3/uL (1.0-4.8) Monocytes # (Auto) 0.5 x10^3/uL (0.0-1.1) Eosinophils # (Auto) 0.1 x10^3/uL (0.0-0.7) Basophils # (Auto) 0.0 x10^3/uL (0.0-0.2) Sodium Level 130 mmol/L (136-145) Potassium Level 2.6 mmol/L (3.5-5.1) Chloride Level 92 mmol/L (98-107) Carbon Dioxide Level 30 mmol/L (21-32) Anion Gap 8 (6-14) Blood Urea Nitrogen 15 mg/dL (8-26) Creatinine 0.9 mg/dL (0.7-1.3) Estimated GFR (Cockcroft-Gault) 86.4 BUN/Creatinine Ratio 17 (6-20) Glucose Level 75 mg/dL (70-99) Calcium Level 7.8 mg/dL (8.5-10.1) Total Bilirubin 1.6 mg/dL (0.2-1.0) Aspartate Amino Transf (AST/SGOT) 93 U/L (15-37) Alanine Aminotransferase (ALT/SGPT) 55 U/L (16-63) Alkaline Phosphatase 57 U/L (46-116) Total Protein 5.9 g/dL (6.4-8.2) Albumin 2.9 g/dL (3.4-5.0) Albumin/Globulin Ratio 1.0 (1.0-1.7) Assessment and Plan Assessmemt and Plan Problems Medical Problems: (1) Acute encephalopathy Status: Acute (2) Hypokalemia Status: Acute (3) Lactic acid acidosis Status: Acute (4) New onset seizure Status: Acute (5) Rhabdomyolysis Status: Acute (6) Transaminitis Status: Acute Comment Review of Relevant I have reviewed the following items elaina (where applicable) has been applied. Medications: Current Medications Medications (Trade) Dose Ordered Sig/Cuauhtemoc Route PRN Reason Start Time Stop Time Status Last Admin Dose Admin Multivitamins 10 ml/Thiamine HCl 100 mg/Folic Acid 1 mg/Sodium Chloride 1,011.2 ml @ 100 mls/ hr DAILY IV 11/09/21 14:00 11/13/21 19:07 11/10/21 09:00 Senna/Docusate Sodium (Senna Plus) 1 tab BID PO 11/09/21 21:00 11/09/21 22:16 Heparin Sodium (Porcine) (Heparin Sodium) 5,000 unit Q8HRS SQ 11/09/21 14:00 11/09/21 22:00 Potassium Chloride (Klor-Con) 40 meq Q4H PO 11/10/21 08:00 11/10/21 12:01 DC 11/10/21 11:11 Gadoterate Meglumine (Clariscan) 20 ml 1X ONCE IVP 11/10/21 11:15 11/10/21 11:16 DC 11/10/21 12:36 Justifications for Admission Other Justification CEDRICK URIBE MD Nov 10, 2021 13:24
[2021-11-10] MEDS ORDERED: LEVOTHYROXINE 100 MCG TABLET PO SCH (14:30)
[2021-11-10 15:00] VITALS: BP 85/59
[2021-11-10 19:23] VITALS: BP 110/60
[2021-11-10 23:01] VITALS: BP 135/51
[2021-11-11 02:30] VITALS: BP 92/75
[2021-11-11] MEDS: HEPARIN for SUB-Q USE 5,000 UNIT/ML VIAL. SQ SCH (05:18)
[2021-11-11] MEDS ORDERED: LEVOTHYROXINE 100 MCG TABLET PO SCH (06:00)
[2021-11-11 06:17] LABS: HEMATOCRIT 35.1 % (39.0-53.0); HEMOGLOBIN 12.2 g/dL (13.0-17.5); RED BLOOD COUNT 3.64 x10^6/uL (4.30-5.70); RED CELL DISTRIBUTION WIDTH 14.4 % (11.5-14.5); WHITE BLOOD COUNT 5.3 x10^3/uL (4.0-11.0)
[2021-11-11 06:39] LABS: CALCIUM 8.6 mg/dL (8.5-10.1); CREATININE 0.9 mg/dL (0.7-1.3); GFR 86.4
[2021-11-11 06:43] LABS: POTASSIUM 2.9 mmol/L (3.5-5.1)
[2021-11-11] MEDS ORDERED: IBUPROFEN 200 MG TABLET. PO PRN ×2 (06:45)
[2021-11-11] MEDS ORDERED: ACETAMINOPHEN 325 MG TABLET. PO PRN ×2 (06:45)
--- NOTE | 2021-11-11 06:59 | NUR ---
Pt c/o pain, Dr Lopes notified, new pain med orders received see emar. pmrn
[2021-11-11 07:00] VITALS: BP 143/78
[2021-11-11] MEDS: POTASSIUM CHLORIDE 20 MEQ TABLET.ER. PO SCH ×2 (07:21→10:08)
[2021-11-11] MEDS: SENNOSIDES/DOCUSATE 8.6/50MG TABLET. PO SCH (08:30)
[2021-11-11] MEDS ORDERED: MULTIVITAMIN with MINERAL TABLET. PO SCH (09:00)
[2021-11-11] MEDS ORDERED: FOLIC ACID 1 MG TABLET. PO SCH (09:00)
[2021-11-11] MEDS ORDERED: THIAMINE 100 MG TABLET. PO SCH (09:00)
--- NOTE | 2021-11-11 09:01 | EEG ---
DATE OF SERVICE: 11/10/2021 ELECTROENCEPHALOGRAM EEG NUMBER: [id number] performed on 11/10/2021. OBJECTIVE: The patient is a 61-year-old male with seizure. DESCRIPTION: This is a digital study. Electrodes are placed according to the international 10-20 system. Bipolar and referential montages are available. Activation procedures typically include hyperventilation and intermittent photic stimulation. INTERPRETATION: The waking background consists of 7-8 Hz, 20-50 microvolt activity, symmetrically distributed over parietooccipital regions and reactive to eye opening. Hyperventilation and intermittent photic stimulation are noncontributory. Sleep was not achieved. IMPRESSION: This electroencephalogram with the patient awake only is abnormal because of a mild, diffuse disturbance of cerebral activity consistent with any of a variety of toxic or metabolic encephalopathies. There is no focal, paroxysmal or epileptiform activity. Thank you for letting us help with the patient's care. DENNISE DR: Suzette TID: [phone]
--- NOTE | 2021-11-11 09:38 | PDOC ---
[employer] [facility] PROGRESS NOTE Date of Service DOS: DATE: 11/11/21 TIME: 09:36 Chief Complaint Chief Complaint Seizure-like activity suspect secondary to alcohol withdrawal versus electrolyte abnormalities hypokalemia epilepsy? Alcohol abuse Hypothyroidism History of Present Illness History of Present Illness 11/11: Patient has no complaints today, denies headache or diaphoresis. He has not required any Ativan for withdrawal symptoms. Plan is to discharge patient home with self-care. Nurses concerned that she found empty bottle of whiskey in patient's bed, which she states is old. We will perform urine toxicology, and if negative he may discharge today. Greater than 30 minutes spent managing the discharge of this patient. 11/10: Afebrile. No seizure-like activity today. MRI showed no acute intracranial finding, but did show findings favoring of remote encephalomalacia. We will continue as needed Ativan and withdrawal treatment. Potassium 2.6 today; will replace. TSH 14.7; will initiate levothyroxine. He does admit to a history of hyperthyroidism in the past, treated with radioactive ablation. Vitals/I&O Vitals/I&O: Vital Signs Date Time Temp Pulse Resp B/P (MAP) Pulse Ox O2 Delivery O2 Flow Rate FiO2 11/11/21 07:00 97.4 93 20 143/78 (99) 95 Room Air 97.4 11/10/21 08:00 2.0 I & O 11/10/21 11/10/21 11/11/21 15:00 23:00 07:00 Intake Total 610 ml 1100 ml 0 ml Output Total 550 ml 400 ml 300 ml Balance 60 ml 700 ml -300 ml Physical Exam General: Alert, Cooperative Heart: Regular rate Lungs: Clear Abdomen: Soft, No tenderness Extremities: No clubbing Skin: No rashes Labs Labs: Laboratory Tests Test 11/11/21 04:30 White Blood Count 5.3 x10^3/uL (4.0-11.0) Red Blood Count 3.64 x10^6/uL (4.30-5.70) Hemoglobin 12.2 g/dL (13.0-17.5) Hematocrit 35.1 % (39.0-53.0) Mean Corpuscular Volume 97 fL (79-100) Mean Corpuscular Hemoglobin 34 pg (25-35) Mean Corpuscular Hemoglobin Concent 35 g/dL (31-37) Red Cell Distribution Width 14.4 % (11.5-14.5) Platelet Count 121 x10^3/uL (140-400) Sodium Level 133 mmol/L (136-145) Potassium Level 2.9 mmol/L (3.5-5.1) Chloride Level 95 mmol/L (98-107) Carbon Dioxide Level 27 mmol/L (21-32) Anion Gap 11 (6-14) Blood Urea Nitrogen 7 mg/dL (8-26) Creatinine 0.9 mg/dL (0.7-1.3) Estimated GFR (Cockcroft-Gault) 86.4 Glucose Level 73 mg/dL (70-99) Calcium Level 8.6 mg/dL (8.5-10.1) Assessment and Plan Assessmemt and Plan Problems Medical Problems: (1) Acute encephalopathy Status: Acute (2) Hypokalemia Status: Acute (3) Lactic acid acidosis Status: Acute (4) New onset seizure Status: Acute (5) Rhabdomyolysis Status: Acute (6) Transaminitis Status: Acute Comment Review of Relevant I have reviewed the following items elaina (where applicable) has been applied. Medications: Current Medications Medications (Trade) Dose Ordered Sig/Cuauhtemoc Route PRN Reason Start Time Stop Time Status Last Admin Dose Admin Multivitamins (Thera M Plus) 1 tab DAILY PO 11/11/21 09:00 11/11/21 08:30 Folic Acid (Folic Acid) 1 mg DAILY PO 11/11/21 09:00 11/11/21 08:30 Thiamine Mononitrate (Vitamin B-1) 100 mg DAILY PO 11/11/21 09:00 11/11/21 08:30 Gadoterate Meglumine (Clariscan) 20 ml 1X ONCE IVP 11/10/21 11:15 11/10/21 11:16 DC 11/10/21 12:36 Levothyroxine Sodium (Synthroid) 100 mcg DAILY06 PO 11/11/21 06:00 11/11/21 05:16 Ibuprofen (Motrin) 600 mg PRN Q6HRS PRN PO INFLAMMATION 11/11/21 06:45 11/11/21 07:22 Potassium Chloride (Klor-Con) 40 meq Q4H PO 11/11/21 07:00 11/11/21 11:01 11/11/21 07:21 Justifications for Admission Other Justification CEDRICK URIBE MD Nov 11, 2021 09:38
--- NOTE | 2021-11-11 09:44 | PDOC3 ---
Discharge Summary Visit Information Date of Admission: Nov 09, 2021 Date of Discharge: Nov 11, 2021 Final Diagnosis Problems Medical Problems: (1) Acute encephalopathy Status: Acute (2) Hypokalemia Status: Acute (3) Lactic acid acidosis Status: Acute (4) New onset seizure Status: Acute (5) Rhabdomyolysis Status: Acute (6) Transaminitis Status: Acute Brief Hospital Course Allergies Allergies Coded Allergies Type Severity Reaction Last Updated Verified No Known Drug Allergies 11/08/21 No Vital Signs Vital Signs Date Time Temp Pulse Resp B/P (MAP) Pulse Ox O2 Delivery O2 Flow Rate FiO2 11/11/21 07:00 97.4 93 20 143/78 (99) 95 Room Air 97.4 11/10/21 08:00 2.0 Lab Results Laboratory Tests Test 11/09/21 11:02 11/10/21 02:50 11/11/21 04:30 Sodium Level 126 mmol/L (136-145) 130 mmol/L (136-145) 133 mmol/L (136-145) Potassium Level 2.4 mmol/L (3.5-5.1) 2.6 mmol/L (3.5-5.1) 2.9 mmol/L (3.5-5.1) Chloride Level 89 mmol/L (98-107) 92 mmol/L (98-107) 95 mmol/L (98-107) Carbon Dioxide Level 31 mmol/L (21-32) 30 mmol/L (21-32) 27 mmol/L (21-32) Anion Gap 6 (6-14) 8 (6-14) 11 (6-14) Blood Urea Nitrogen 23 mg/dL (8-26) 15 mg/dL (8-26) 7 mg/dL (8-26) Creatinine 1.0 mg/dL (0.7-1.3) 0.9 mg/dL (0.7-1.3) 0.9 mg/dL (0.7-1.3) Estimated GFR (Cockcroft-Gault) 76.5 86.4 86.4 Glucose Level 94 mg/dL (70-99) 75 mg/dL (70-99) 73 mg/dL (70-99) Calcium Level 7.9 mg/dL (8.5-10.1) 7.8 mg/dL (8.5-10.1) 8.6 mg/dL (8.5-10.1) Thyroxine (T4) 0.9 ug/dL (4.5-12.0) White Blood Count 4.7 x10^3/uL (4.0-11.0) 5.3 x10^3/uL (4.0-11.0) Red Blood Count 3.38 x10^6/uL (4.30-5.70) 3.64 x10^6/uL (4.30-5.70) Hemoglobin 11.5 g/dL (13.0-17.5) 12.2 g/dL (13.0-17.5) Hematocrit 32.3 % (39.0-53.0) 35.1 % (39.0-53.0) Mean Corpuscular Volume 96 fL (79-100) 97 fL (79-100) Mean Corpuscular Hemoglobin 34 pg (25-35) 34 pg (25-35) Mean Corpuscular Hemoglobin Concent 36 g/dL (31-37) 35 g/dL (31-37) Red Cell Distribution Width 14.4 % (11.5-14.5) 14.4 % (11.5-14.5) Platelet Count 98 x10^3/uL (140-400) 121 x10^3/uL (140-400) Neutrophils (%) (Auto) 58 % (31-73) Lymphocytes (%) (Auto) 28 % (24-48) Monocytes (%) (Auto) 11 % (0-9) Eosinophils (%) (Auto) 2 % (0-3) Basophils (%) (Auto) 1 % (0-3) Neutrophils # (Auto) 2.7 x10^3/uL (1.8-7.7) Lymphocytes # (Auto) 1.3 x10^3/uL (1.0-4.8) Monocytes # (Auto) 0.5 x10^3/uL (0.0-1.1) Eosinophils # (Auto) 0.1 x10^3/uL (0.0-0.7) Basophils # (Auto) 0.0 x10^3/uL (0.0-0.2) BUN/Creatinine Ratio 17 (6-20) Total Bilirubin 1.6 mg/dL (0.2-1.0) Aspartate Amino Transf (AST/SGOT) 93 U/L (15-37) Alanine Aminotransferase (ALT/SGPT) 55 U/L (16-63) Alkaline Phosphatase 57 U/L (46-116) Total Protein 5.9 g/dL (6.4-8.2) Albumin 2.9 g/dL (3.4-5.0) Albumin/Globulin Ratio 1.0 (1.0-1.7) Laboratory Tests Test 11/11/21 04:30 White Blood Count 5.3 x10^3/uL (4.0-11.0) Red Blood Count 3.64 x10^6/uL (4.30-5.70) Hemoglobin 12.2 g/dL (13.0-17.5) Hematocrit 35.1 % (39.0-53.0) Mean Corpuscular Volume 97 fL (79-100) Mean Corpuscular Hemoglobin 34 pg (25-35) Mean Corpuscular Hemoglobin Concent 35 g/dL (31-37) Red Cell Distribution Width 14.4 % (11.5-14.5) Platelet Count 121 x10^3/uL (140-400) Sodium Level 133 mmol/L (136-145) Potassium Level 2.9 mmol/L (3.5-5.1) Chloride Level 95 mmol/L (98-107) Carbon Dioxide Level 27 mmol/L (21-32) Anion Gap 11 (6-14) Blood Urea Nitrogen 7 mg/dL (8-26) Creatinine 0.9 mg/dL (0.7-1.3) Estimated GFR (Cockcroft-Gault) 86.4 Glucose Level 73 mg/dL (70-99) Calcium Level 8.6 mg/dL (8.5-10.1) Brief Hospital Course Mr. Medellin is a 61 old male who presented with seizure, hypokalemia.. Consultation was placed to neurology. Potassium 2.2 on admission, was replaced. Had MRI that no acute intracranial finding, encephalomalacia with surrounding gliosis involving the left temporal lobe and inferior medial right greater than left frontal lobes, the distribution of which favors changes due to remote trauma, scattered foci of signal change within the cerebral white matter, likely due to chronic small vessel disease. EEG showed mild diffuse disturbance of cerebral activity consistent with any of a variety of toxic or metabolic encephalopathies; there is no focal, paroxysmal or epileptiform activity. He was stable to discharge per neurology. He was treated with alcohol withdrawal protocol but did not require any Ativan. TSH 14.7, reported history of thyroid ablation. Will initiate on levothyroxine and recommend follow-up with PCP and having TSH rechecked in 6 to 8 weeks. Recommend follow-up with PCP and have potassium rechecke in 5-7 days. Will discharge home with self-care. Discharge Information Condition at Discharge: Stable Disposition/Orders: D/C to Home Miscellaneous Medications [Hypertension Med.] , (Reported) Entered as Reported by: Rafael Toribio on 11/09/21354 Last Action: New Order on 11/09/21354 by Rafael Toribio Justicifation of Admission Dx: Justifications for Admission: Justification of Admission Dx: N/A CEDRICK URIBE MD Nov 11, 2021 09:44
[2021-11-11] MEDS ORDERED: LEVO100T5 PO (09:46)
--- NOTE | 2021-11-11 09:47 | PDOC ---
PROGRESS NOTES Date of Service DATE: 11/11/21 TIME: 09:45 Assessment Problems Medical Problems: (1) Acute encephalopathy Status: Acute (2) Hypokalemia Status: Acute (3) Lactic acid acidosis Status: Acute (4) New onset seizure Status: Acute (5) Rhabdomyolysis Status: Acute (6) Transaminitis Status: Acute Suspected seizure, history of remote seizure. EEG shows slowing of background, no epileptic activity Encephalomalacia with surrounding gliosis involving the left temporal lobe and inferior medial right greater than left frontal lobes, the distribution of which favors changes due to remote trauma. Alcohol use, alcohol level negative here, tobacco abuse, no evidence of acute withdrawal syndrome. I found an empty bottle of whiskey in his bed Rhabdomyolysis, transaminitis, hypokalemia Plan Okay for discharge Alcohol withdrawal protocol Hold on starting anticonvulsants I informed patient that he cannot drive until he has gone 6 months without a seizure Subjective No complaints Objective Vital Signs Date Time Temp Pulse Resp B/P (MAP) Pulse Ox O2 Delivery O2 Flow Rate FiO2 11/11/21 08:00 Room Air 2.0 11/11/21 07:00 97.4 93 20 143/78 (99) 95 97.4 Intake and Output 11/11/21 07:00 Intake Total 1710 ml Output Total 1250 ml Balance 460 ml Intake Oral 1710 ml Output Urine Total 1250 ml PHYSICAL EXAM Alert. Oriented to time, place and person. PERRL. EOMI. CN: no focal findings. Muscle tone: normal. Muscle strength: 5/5 DTR: 1+ Plantar reflex: Flexor Gait: A little unsteady, antalgic Sensory exam: no abnormal findings. No cerebellar signs elicited. Review of Relevant I have reviewed the following items elaina (where applicable) has been applied. Labs Laboratory Tests Test 11/09/21 11:02 11/10/21 02:50 11/11/21 04:30 Sodium Level 126 mmol/L (136-145) 130 mmol/L (136-145) 133 mmol/L (136-145) Potassium Level 2.4 mmol/L (3.5-5.1) 2.6 mmol/L (3.5-5.1) 2.9 mmol/L (3.5-5.1) Chloride Level 89 mmol/L (98-107) 92 mmol/L (98-107) 95 mmol/L (98-107) Carbon Dioxide Level 31 mmol/L (21-32) 30 mmol/L (21-32) 27 mmol/L (21-32) Anion Gap 6 (6-14) 8 (6-14) 11 (6-14) Blood Urea Nitrogen 23 mg/dL (8-26) 15 mg/dL (8-26) 7 mg/dL (8-26) Creatinine 1.0 mg/dL (0.7-1.3) 0.9 mg/dL (0.7-1.3) 0.9 mg/dL (0.7-1.3) Estimated GFR (Cockcroft-Gault) 76.5 86.4 86.4 Glucose Level 94 mg/dL (70-99) 75 mg/dL (70-99) 73 mg/dL (70-99) Calcium Level 7.9 mg/dL (8.5-10.1) 7.8 mg/dL (8.5-10.1) 8.6 mg/dL (8.5-10.1) Thyroxine (T4) 0.9 ug/dL (4.5-12.0) White Blood Count 4.7 x10^3/uL (4.0-11.0) 5.3 x10^3/uL (4.0-11.0) Red Blood Count 3.38 x10^6/uL (4.30-5.70) 3.64 x10^6/uL (4.30-5.70) Hemoglobin 11.5 g/dL (13.0-17.5) 12.2 g/dL (13.0-17.5) Hematocrit 32.3 % (39.0-53.0) 35.1 % (39.0-53.0) Mean Corpuscular Volume 96 fL (79-100) 97 fL (79-100) Mean Corpuscular Hemoglobin 34 pg (25-35) 34 pg (25-35) Mean Corpuscular Hemoglobin Concent 36 g/dL (31-37) 35 g/dL (31-37) Red Cell Distribution Width 14.4 % (11.5-14.5) 14.4 % (11.5-14.5) Platelet Count 98 x10^3/uL (140-400) 121 x10^3/uL (140-400) Neutrophils (%) (Auto) 58 % (31-73) Lymphocytes (%) (Auto) 28 % (24-48) Monocytes (%) (Auto) 11 % (0-9) Eosinophils (%) (Auto) 2 % (0-3) Basophils (%) (Auto) 1 % (0-3) Neutrophils # (Auto) 2.7 x10^3/uL (1.8-7.7) Lymphocytes # (Auto) 1.3 x10^3/uL (1.0-4.8) Monocytes # (Auto) 0.5 x10^3/uL (0.0-1.1) Eosinophils # (Auto) 0.1 x10^3/uL (0.0-0.7) Basophils # (Auto) 0.0 x10^3/uL (0.0-0.2) BUN/Creatinine Ratio 17 (6-20) Total Bilirubin 1.6 mg/dL (0.2-1.0) Aspartate Amino Transf (AST/SGOT) 93 U/L (15-37) Alanine Aminotransferase (ALT/SGPT) 55 U/L (16-63) Alkaline Phosphatase 57 U/L (46-116) Total Protein 5.9 g/dL (6.4-8.2) Albumin 2.9 g/dL (3.4-5.0) Albumin/Globulin Ratio 1.0 (1.0-1.7) Laboratory Tests Test 11/11/21 04:30 White Blood Count 5.3 x10^3/uL (4.0-11.0) Red Blood Count 3.64 x10^6/uL (4.30-5.70) Hemoglobin 12.2 g/dL (13.0-17.5) Hematocrit 35.1 % (39.0-53.0) Mean Corpuscular Volume 97 fL (79-100) Mean Corpuscular Hemoglobin 34 pg (25-35) Mean Corpuscular Hemoglobin Concent 35 g/dL (31-37) Red Cell Distribution Width 14.4 % (11.5-14.5) Platelet Count 121 x10^3/uL (140-400) Sodium Level 133 mmol/L (136-145) Potassium Level 2.9 mmol/L (3.5-5.1) Chloride Level 95 mmol/L (98-107) Carbon Dioxide Level 27 mmol/L (21-32) Anion Gap 11 (6-14) Blood Urea Nitrogen 7 mg/dL (8-26) Creatinine 0.9 mg/dL (0.7-1.3) Estimated GFR (Cockcroft-Gault) 86.4 Glucose Level 73 mg/dL (70-99) Calcium Level 8.6 mg/dL (8.5-10.1) Medications Current Medications Sodium Chloride 1,000 ml @ 1,000 mls/hr 1X ONCE IV Last administered on 11/09/21at 00:43; Start 11/09/21 at 00:30; Stop 11/09/21 at 01:29; Status DC Ibuprofen (Motrin) 800 mg 1X ONCE PO ; Start 11/09/21 at 01:00; Stop 11/09/21 at 01:01; Status DC Potassium Chloride/Sodium Chloride 1,000 ml @ 250 mls/hr Q4H IV Last administered on 11/09/21at 02:03; Start 11/09/21 at 02:00; Stop 11/09/21 at 05:59; Status DC Potassium Chloride (Klor-Con) 40 meq 1X ONCE PO ; Start 11/09/21 at 02:00; Stop 11/09/21 at 02:01; Status DC Magnesium Sulfate 100 ml @ 25 mls/hr 1X ONCE IV Last administered on 11/09/21at 02:30; Start 11/09/21 at 02:00; Stop 11/09/21 at 05:59; Status DC Ondansetron HCl (Zofran) 4 mg PRN Q8HRS PRN IVP NAUSEA/VOMITING 1ST CHOICE; Start 11/09/21 at 01:45; Stop 11/10/21 at 01:44; Status DC Morphine Sulfate (Morphine Sulfate) 2 mg PRN Q2HR PRN IVP SEVERE PAIN 7-10; Start 11/09/21 at 01:45; Stop 11/10/21 at 01:44; Status DC Multivitamins 10 ml/Thiamine HCl 100 mg/Folic Acid 1 mg/Sodium Chloride 1,011.2 ml @ 100 mls/ hr DAILY IV Last administered on 11/10/21at 09:00; Start 11/09/21 at 14:00; Stop 11/11/21 at 06:00; Status DC Multivitamins (Thera M Plus) 1 tab DAILY PO Last administered on 11/11/21at 08:30; Start 11/11/21 at 09:00 Folic Acid (Folic Acid) 1 mg DAILY PO Last administered on 11/11/21at 08:30; Start 11/11/21 at 09:00 Thiamine Mononitrate (Vitamin B-1) 100 mg DAILY PO Last administered on 11/11/21at 08:30; Start 11/11/21 at 09:00 Lorazepam (Ativan) 4 mg PRN Q1HR PRN PO For CIWA 8-14; Start 11/09/21 at 11:45 Lorazepam (Ativan) 8 mg PRN Q1HR PRN PO For CIWA 15 or greater; Start 11/09/21 at 11:45 Potassium Chloride (Klor-Con) 40 meq Q4H PO Last administered on 11/09/21at 12:25; Start 11/09/21 at 11:45; Stop 11/09/21 at 15:46; Status DC Potassium Chloride/Water 100 ml @ 100 mls/hr Q1H IV Last administered on 11/09/21at 15:30; Start 11/09/21 at 12:30; Stop 11/09/21 at 16:29; Status DC Ondansetron HCl (Zofran) 4 mg PRN Q6HRS PRN IVP NAUSEA/VOMITING; Start 11/09/21 at 11:45 Calcium Carbonate/ Glycine (Tums) 500 mg PRN Q3HRS PRN PO UPSET STOMACH; Start 11/09/21 at 11:45 Info (Non-Icu Electrolyte Protocol) 1 ea PRN DAILY PRN MC SEE COMMENTS; Start 11/09/21 at 11:45 Senna/Docusate Sodium (Senna Plus) 1 tab BID PO Last administered on 11/09/21at 22:16; Start 11/09/21 at 21:00 Heparin Sodium (Porcine) (Heparin Sodium) 5,000 unit Q8HRS SQ Last administered on 11/11/21at 05:18; Start 11/09/21 at 14:00 Potassium Chloride (Klor-Con) 40 meq Q4H PO Last administered on 11/10/21at 11:11; Start 11/10/21 at 08:00; Stop 11/10/21 at 12:01; Status DC Gadoterate Meglumine (Clariscan) 20 ml 1X ONCE IVP Last administered on 11/10/21at 12:36; Start 11/10/21 at 11:15; Stop 11/10/21 at 11:16; Status DC Levothyroxine Sodium (Synthroid) 100 mcg DAILY06 PO ; Start 11/10/21 at 14:30; Status Cancel Levothyroxine Sodium (Synthroid) 100 mcg DAILY06 PO Last administered on 11/11/21at 05:16; Start 11/11/21 at 06:00 Acetaminophen (Tylenol) 650 mg PRN Q6HRS PRN PO MILD PAIN / TEMP > 100.3'F; Start 11/11/21 at 06:45 Ibuprofen (Motrin) 600 mg PRN Q6HRS PRN PO INFLAMMATION Last administered on 11/11/21at 07:22; Start 11/11/21 at 06:45 Potassium Chloride (Klor-Con) 40 meq Q4H PO Last administered on 11/11/21at 07:21; Start 11/11/21 at 07:00; Stop 11/11/21 at 11:01 Ibuprofen (Motrin) 600 mg PRN Q6HRS PRN PO INFLAMMATION; Start 11/11/21 at 06:45; Status Cancel Acetaminophen (Tylenol) 650 mg PRN Q6HRS PRN PO MILD PAIN / TEMP > 100.3'F; Start 11/11/21 at 06:45; Status Cancel Active Scripts Active Reported [Hypertension Med.] Vitals/I & O Vital Sign - Last 24 Hours 11/10/21 11/10/21 11/10/21 11/10/21 10:50 15:00 19:23 20:01 Temp 98.0 98.4 98.1 98.0 98.4 98.1 Pulse 74 79 70 Resp 18 18 18 B/P (MAP) 132/59 (83) 85/59 (68) 110/60 (77) Pulse Ox 98 97 97 O2 Delivery Room Air Room Air Room Air Room Air 11/10/21 11/11/21 11/11/21 11/11/21 23:01 02:30 07:00 08:00 Temp 98.3 98.1 97.4 98.3 98.1 97.4 Pulse 88 67 93 Resp 18 16 20 B/P (MAP) 135/51 (79) 92/75 (81) 143/78 (99) Pulse Ox 98 99 95 O2 Delivery Room Air Room Air Room Air Room Air O2 Flow Rate 2.0 Intake and Output 11/10/21 11/10/21 11/11/21 15:00 23:00 07:00 Intake Total 610 ml 1100 ml 0 ml Output Total 550 ml 400 ml 300 ml Balance 60 ml 700 ml -300 ml Images Brain MRI with and without contrast. HISTORY: Seizure disorder. Remote head trauma. TECHNIQUE: Multiplanar, multisequence magnetic resonance imaging of the brain was performed prior to and following the administration of intravenous contrast. COMPARISON: CT dated 11/08/2021. FINDINGS: There is no restricted diffusion to suggest acute or subacute infarction. There is no mass effect or midline shift. There is no hydrocephalus. There are left parietal craniotomy changes. There is and encephalomalacia and gliosis within the left temporal lobe and inferior medial right greater than left frontal lobes, the distribution of which favors changes due to remote trauma. There are a few nonspecific focal areas of signal change within the cerebral white matter, likely due to chronic small vessel disease. There may be a chronic infarct within the left centrum semiovale. The orbits are unremarkable. There is paranasal sinus mucosal thickening with small right greater than left maxillary sinus mucous retention cyst. There is minimal mastoid fluid. There are normal flow voids within the cerebral vessels. There is no heterotopia or malformation of cortical development. There is no convincing mesial temporal sclerosis. There is no suspicious enhancing lesion. IMPRESSION: 1. No acute intracranial finding. 2. Encephalomalacia with surrounding gliosis involving the left temporal lobe and inferior medial right greater than left frontal lobes, the distribution of which favors changes due to remote trauma. 3. Scattered foci of signal change within the cerebral white matter, likely due to chronic small vessel disease. There may be superimposed small chronic infarct involving the left centrum semiovale. Justicifation of Admission Dx: Justifications for Admission: Justification of Admission Dx: N/A PHILL VEGA MD Nov 11, 2021 09:47
--- NOTE | 2021-11-11 10:34 | NUR ---
SS following up with discharge planning. SS reviewed pt chart and discussed with pt RN. Pt is currently on room air. COVID19 negative. Discharge order on the chart for home with self care. Per RN, pt has transportation.
== END 2021-11-11 10:39 | disposition home or self-care (01) | DRG 101 ==
LOC: ER 23:43 → 6 SOUTH 11-09 01:36
PROVIDERS: ADMIT Internal Medicine; ATTEND Internal Medicine
DX: R56.9 Unspecified convulsions (principal); E87.2 Acidosis; G93.40 Encephalopathy, unspecified; M62.82 Rhabdomyolysis; F10.10 Alcohol abuse, uncomplicated; E03.9 Hypothyroidism, unspecified; E87.6 Hypokalemia; F17.210 Nicotine dependence, cigarettes, uncomplicated; G93.89 Other specified disorders of brain; I15.8 Other secondary hypertension; M48.02 Spinal stenosis, cervical region; Z59.00 Homelessness unspecified; Z87.828 Personal history of other (healed) physical injury and trauma; R74.01 Elevation of levels of liver transaminase levels
CPT/HCPCS: 36415; 70450; 70553; 72125; 80048; 80053; 82550; 83605; 83690; 84436; 84443; 84484; 85025; 85027; 93005; 95816; 96361; 96365; 96366; 96368; A9575; G0480; J1644; J3411; J3475; J3480; J3490; J7030; 99285-25; G0378